=== PATIENT | female | born 1990 | race Caucasian/White ===

== ENCOUNTER → 2016-09-26 | Outpatient (CLI) | payer BC ==
[~2016-09-26] MED LIST: GADAVIST IV PRN
--- NOTE | 2016-09-26 13:57 | DIAGNOSTIC IMAGING REPORT ---
MRI OF THE BRAIN WITHOUT AND WITH IV CONTRAST CLINICAL HISTORY: Papilledema. COMPARISON STUDY: No previous studies for comparison. TECHNIQUE: Utilizing a 1.5 Joyce magnet and dedicated coil, multiplanar, multiecho imaging of the brain was performed pre and postcontrast administration. IV administration of 8 mL of Gadavist contrast was uneventful. FINDINGS: There are no areas of restricted diffusion. No acute intracranial hemorrhage, midline shift or mass effect is present. Ventricular system is normal. Basilar cisterns are patent. No extra-axial collections are present. Flow-voids for the major intracranial vessels are present. No areas of parenchymal signal abnormality are present. There is no intracranial masses or pathologic enhancement. No orbital mass is identified. There is prominence of the bilateral perioptic subarachnoid spaces. There is no evidence for a Chiari 1 malformation. IMPRESSION: 1. Unremarkable MRI of the brain. No intracranial mass. 2. Prominence of the bilateral perioptic subarachnoid spaces. This finding can be seen in the setting of intracranial hypertension. Electronically signed by: Bib Yancey M.D. 09/26/2016 1:55 PM Dictated Date/Time: 09/26/2016 9:06 AM
== END | disposition home or self-care (01) ==
LOC: C.MRIBC 07:46
PROVIDERS: ATTEND Ophthalmology
DX: H47.10 Unspecified papilledema (principal)